=== PATIENT | female | born 1980 | race Hispanic/Latino ===

== ENCOUNTER 2018-04-15 11:54 | Emergency (ER) | payer OTHER, SELFPAY ==
--- NOTE | 2018-04-15 12:21 | ER ---
Nurse's Notes [facility] Name: Navneet Morales Age: 37 yrs Sex: Female : 1980 Arrival Date: 04/15/2018 Time: 11:58 Bed 18 Private MD: None, None Diagnosis: Sciatica, right side Presentation: 04/15 12:01 Presenting complaint: Patient states: "My boss is over reacting. I told him I had a lk1 catch in my back I thought from sleeping wrong, but he had back injuries and he wants to make sure I am ok.". Transition of care: patient was not received from another setting of care. Onset of symptoms was April 14, 2018. Risk Assessment: Do you want to hurt yourself or someone else? Patient reports no desire to harm self or others. Initial Sepsis Screen: Does the patient meet any 2 criteria? No. Patient's initial sepsis screen is negative. Does the patient have a suspected source of infection? No. Patient's initial sepsis screen is negative. Care prior to arrival: None. 12:01 Method Of Arrival: Ambulatory lk1 12:01 Acuity: ALFREDITO 5 lk1 Triage Assessment: 12:04 General: Appears in no apparent distress. Behavior is calm, cooperative, appropriate lk1 for age. Pain: Complains of pain in right gluteus kervin Pain radiates to right hamstring Pain currently is 1 out of 10 on a pain scale. Musculoskeletal: Swelling absent. 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 - Social history:: Smoking status: Patient uses tobacco products, smokes one-half pack cigarettes per day. Screenin:17 Abuse screen: Denies threats or abuse. Nutritional screening: No deficits noted. em Tuberculosis screening: No symptoms or risk factors identified. Fall Risk None identified. Assessment: 12:19 General: Appears in no apparent distress. comfortable, Behavior is calm, cooperative. em Pain: Complains of pain in right low back Pain currently is 1 out of 10 on a pain scale. Neuro: Level of Consciousness is awake, alert, obeys commands, Oriented to person, place, time, situation, Moves all extremities. Gait is steady, Speech is normal, Intact. Cardiovascular: Capillary refill < 3 seconds Patient's skin is warm and dry. Respiratory: Airway is patent Respiratory effort is even, unlabored, Respiratory pattern is regular, symmetrical. GI: Abdomen is round non-distended. : No signs and/or symptoms were reported regarding the genitourinary system. EENT: No signs and/or symptoms were reported regarding the EENT system. Derm: Skin is intact, Skin is pink, warm \\T\\ dry. Musculoskeletal: Range of motion: intact in all extremities. Vital Signs: 12:05 BP 145 / 99; Pulse 87; Resp 14; Temp 97.0(TE); Pulse Ox 99% on R/A; Weight 92.99 kg; lk1 Height 5 ft. 7 in. (170.18 cm) (R); Pain 1/10; 12:22 BP 151 / 92; Pulse 78; em 12:05 Body Mass Index 32.11 (92.99 kg, 170.18 cm) lk1 ED Course: 11:58 Patient arrived in ED. mr 11:58 None, None is Private Physician. mr 12:03 Triage completed. lk1 12:06 Arm band placed on right wrist. lk1 12:08 Dione Ferrell FNP-C is PSYCHIATRICP. kb 12:08 Stefano Butler MD is Attending Physician. kb 12:09 [place] LVN is Primary Nurse. em 12:17 No provider procedures requiring assistance completed. Patient did not have IV access em during this emergency room visit. 12:18 Patient has correct armband on for positive identification. em Administered Medications: No medications were administered Outcome: 12:21 Discharge ordered by . kb 12:26 Discharged to home ambulatory. em 12:26 Condition: good 12:26 Discharge instructions given to patient. 12:30 Patient left the ED. em Signatures: Dione Ferrell FNP-C FNP-Elizabeth Pagan mr [place] LVN WATERSHED COORDINATOR em Betty Pearson, DIANE RN lk1 Corrections: (The following items were deleted from the chart) 12:04 12:03 PSHx: None; lk1 lk1
--- NOTE | 2018-04-15 12:21 | EDPHYS ---
Physician Documentation [facility] Name: Navneet Morales Age: 37 yrs Sex: Female : 1980 Arrival Date: 04/15/2018 Time: 11:58 Bed 18 Private MD: None, None ED Physician Stefano Butler HPI: 04/15 12:17 This 37 yrs old Female presents to ER via Ambulatory with complaints of Back kb Pain. 12:17 The patient presents with pain that is acute, with no known mechanism of injury. The kb symptoms are located in the right low back. Onset: The symptoms/episode began/occurred yesterday. The pain radiates to the right leg. Associated signs and symptoms: The patient has no apparent associated signs or symptoms. The problem was sustained without known cause. Modifying factors: The patient symptoms are alleviated by nothing, the patient symptoms are aggravated by any movement. Severity of symptoms: At their worst the symptoms were very mild, in the emergency department the symptoms are unchanged. The patient has experienced similar episodes in the past, a few times. The patient has not recently seen a physician. 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 Woke up with pain to lower right back that radiates down right thigh yesterday morning. States today she just wanted to rest so she called into work and her boss to her to come get it checked out. . 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 - Social history:: Smoking status: Patient uses tobacco products, smokes one-half pack cigarettes per day. ROS: 12:19 Constitutional: Negative for fever, chills, and weight loss, Cardiovascular: Negative kb for chest pain, palpitations, and edema, Respiratory: Negative for shortness of breath, cough, wheezing, and pleuritic chest pain, Abdomen/GI: Negative for abdominal pain, nausea, vomiting, diarrhea, and constipation, : Negative for injury, bleeding, discharge, and swelling, MS/Extremity: Negative for injury and deformity, Skin: Negative for injury, rash, and discoloration, Neuro: Negative for headache, weakness, numbness, tingling, and seizure. 12:19 Back: Positive for pain at rest, pain with movement, radiated pain. Exam: 12:20 Constitutional: This is a well developed, well nourished patient who is awake, alert, kb and in no acute distress. Head/Face: Normocephalic, atraumatic. Chest/axilla: Normal chest wall appearance and motion. Nontender with no deformity. No lesions are appreciated. Cardiovascular: Regular rate and rhythm with a normal S1 and S2. No gallops, murmurs, or rubs. Normal PMI, no JVD. No pulse deficits. Respiratory: Lungs have equal breath sounds bilaterally, clear to auscultation and percussion. No rales, rhonchi or wheezes noted. No increased work of breathing, no retractions or nasal flaring. Abdomen/GI: Soft, non-tender, with normal bowel sounds. No distension or tympany. No guarding or rebound. No evidence of tenderness throughout. Skin: Warm, dry with normal turgor. Normal color with no rashes, no lesions, and no evidence of cellulitis. MS/ Extremity: Pulses equal, no cyanosis. Neurovascular intact. Full, normal range of motion. Neuro: Awake and alert, GCS 15, oriented to person, place, time, and situation. Cranial nerves II-XII grossly intact. Motor strength 5/5 in all extremities. Sensory grossly intact. Cerebellar exam normal. Normal gait. 12:20 Back: pain, that is mild, of the right low back. Vital Signs: 12:05 BP 145 / 99; Pulse 87; Resp 14; Temp 97.0(TE); Pulse Ox 99% on R/A; Weight 92.99 kg; lk1 Height 5 ft. 7 in. (170.18 cm) (R); Pain 1/10; 12:22 BP 151 / 92; Pulse 78; em 12:05 Body Mass Index 32.11 (92.99 kg, 170.18 cm) lk1 MDM: 12:08 Patient medically screened. kb 12:20 Data reviewed: vital signs, nurses notes. Data interpreted: Pulse oximetry: on room air kb is 99 %. Interpretation: normal. Counseling: I had a detailed discussion with the patient and/or guardian regarding: the historical points, exam findings, and any diagnostic results supporting the discharge/admit diagnosis, the need for outpatient follow up, a family practitioner, to return to the emergency department if symptoms worsen or persist or if there are any questions or concerns that arise at home. Administered Medications: No medications were administered Disposition: 14:34 Co-signature as Attending Physician, Stefano Butler MD. rn Disposition: 04/15/18 12:21 Discharged to Home. Impression: Sciatica, right side. - Condition is Stable. - Discharge Instructions: Sciatica, [id number], Back Exercises, [id number]. - Work release form, Medication Reconciliation Form, Thank You Letter, Antibiotic Education, Prescription Opioid Use form. - Follow up: Emergency Department; When: As needed; Reason: Worsening of condition. Follow up: Private Physician; When: 2 - 3 days; Reason: Recheck today's complaints, Continuance of care, Re-evaluation by your physician. Signatures: Dione Ferrell, TRANSFORMATION MANAGER-C TRANSFORMATION MANAGER-Ckb [place], FOOD AND BEVERAGE OPERATIONS MANAGER FOOD AND BEVERAGE OPERATIONS MANAGER Stefano Puga MD MD rn Kluge, Leah, RN RN lk1 Corrections: (The following items were deleted from the chart) 12:04 12:03 PSHx: None; lk1 lk1 12:30 12:21 04/15/2018 12:21 Discharged to Home. Impression: Sciatica, right side. Condition em is Stable. Forms are Medication Reconciliation Form, Thank You Letter, Antibiotic Education, Prescription Opioid Use. Follow up: Emergency Department; When: As needed; Reason: Worsening of condition. Follow up: Private Physician; When: 2 - 3 days; Reason: Recheck today's complaints, Continuance of care, Re-evaluation by your physician. kb
[2018-04-15 12:44] VITALS: TEMP 97; O2SAT 99
[2018-04-15 12:45] VITALS: BP 151/92
== END 2018-04-15 12:30 | disposition home or self-care (01) ==
LOC: ER 11:54
DX: M54.31 Sciatica, right side (principal); F17.210 Nicotine dependence, cigarettes, uncomplicated
CPT/HCPCS: 99281

== ENCOUNTER 2020-04-16 21:34 | Emergency (ER) | payer OTHER, SELFPAY ==
[2020-04-16 23:41] LABS: Basophils % 1.3 % (0-1.3); Hematocrit 29.5 % (36.0-45.0); Lymphocytes % 28.7 % (15.3-44.8); MPV 8.2 fL (7.6-11.3); RBC Red Blood Cell Count 4.25 M/uL (3.86-4.86)
[2020-04-16 23:50] LABS: ALT/SGPT 33 U/L (12-78); AST/SGOT 17 U/L (15-37); Albumin 3.7 g/dL (3.4-5.0); Alkaline Phosphatase 83 U/L (45-117); BUN Blood Urea Nitrogen 8 mg/dL (7-18); Bicarbonate 27 mmol/L (21-32); Bilirubin Direct < 0.1 mg/dL (0-0.2); Bilirubin Total 0.3 mg/dL (0.2-1.0); Glucose Level 105 mg/dL (74-106); Lipase 172 U/L (73-393); Potassium 3.6 mmol/L (3.5-5.1); Sodium Level 140 mmol/L (136-145)
[2020-04-16 23:59] LABS: Urine Blood NEGATIVE (NEG); Urine Glucose NEGATIVE (NEG); Urine Protein NEGATIVE (NEG); Urine Specific Gravity >1.030 (1.005-1.030)
[2020-04-17] MEDS ORDERED: NA CHLORIDE 0.9% 1,000 ML ONE (00:10)
[2020-04-17 00:33] LABS: Platelet Estimate ADEQ; Urine White Blood Cell Casts OK
[2020-04-17 00:34] LABS: Blood Morphology Comment NOTED (NOT SEEN); Elliptocytes 1+; Hypochromasia 1+
[2020-04-17 00:44] LABS: Magnesium 2.3 mg/dL (1.8-2.4); Troponin (Emerg Dept Use Only) < 0.02 ng/mL (0.0-0.045)
--- NOTE | 2020-04-17 00:58 | ER ---
Nurse's Notes [facility] Name: Navneet Morales Age: 39 yrs Sex: Female : 1980 Arrival Date: 04/16/2020 Time: 21:34 Bed 8 Private MD: Diagnosis: Abdominal tenderness;Functional dyspepsia;Iron deficiency anemia, unspecified-microcytic , hypochromic Presentation: 04/16 21:56 Chief complaint: Patient states: Abdominal pain described as tightness x 4-5 days. ca1 Denies N/V/D. Reports fatigued and feeling weak. Coronavirus screen: Proceed with normal triage. Patient denies a cough. Patient denies shortness of breath or difficulty breathing. Patient denies measured and/or subjective temperature greater than 100.4F prior to today's visit. Patient denies travel on a cruise ship or to a country the [facility] currently lists as an affected area. Patient denies contact with known and/or suspected case of COVID-19. Ebola Screen: Patient negative for fever greater than or equal to 101.5 degrees Fahrenheit, and additional compatible Ebola Virus Disease symptoms Patient denies exposure to infectious person. Patient denies travel to an Ebola-affected area in the 21 days before illness onset. No symptoms or risks identified at this time. Initial Sepsis Screen: Does the patient meet any 2 criteria? No. Patient's initial sepsis screen is negative. Does the patient have a suspected source of infection? No. Patient's initial sepsis screen is negative. Risk Assessment: Do you want to hurt yourself or someone else? Patient reports no desire to harm self or others. Onset of symptoms was April 16, 2020. 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 - Social history:: Smoking status: Patient reports the use of cigarette tobacco products, smokes one-half pack cigarettes per day. - Family history:: not pertinent. Screenin:00 Abuse screen: Denies threats or abuse. Denies injuries from another. Nutritional rr5 screening: No deficits noted. Tuberculosis screening: No symptoms or risk factors identified. Fall Risk IV access (20 points). Mental Status- Total Owen Fall Scale indicates No Risk (0-24 pts). Assessment: 23:00 General: Appears in no apparent distress. comfortable, Behavior is calm, cooperative, rr5 appropriate for age. 23:00 Pain: Complains of pain in abdomen Pain does not radiate. Pain Quality of pain is rr5 described as tight Pain began gradually, 4-5days Is intermittent. Neuro: Level of Consciousness is awake, alert, obeys commands, Oriented to person, place, time, situation. Cardiovascular: Capillary refill < 3 seconds Patient's skin is warm and dry. Respiratory: Airway is patent Respiratory effort is even, unlabored, Respiratory pattern is regular, symmetrical. GI: Abdomen is round non-distended, Bowel sounds present X 4 quads. Abd is soft and non tender X 4 quads. Reports lower abdominal pain, upper abdominal pain, Patient currently denies diarrhea, nausea, vomiting. : No signs and/or symptoms were reported regarding the genitourinary system. EENT: No signs and/or symptoms were reported regarding the EENT system. Derm: Skin is intact, is healthy with good turgor, Skin temperature is warm. Musculoskeletal: Circulation, motion, and sensation intact. Capillary refill < 3 seconds. 23:00 General: Reports fatigue for and weak. rr5 04/17 00:16 Reassessment: Patient appears in no apparent distress at this time. Patient and/or rr5 family updated on plan of care and expected duration. Pain level reassessed. Patient is alert, oriented x 3, equal unlabored respirations, skin warm/dry/pink. 01:04 Reassessment: Patient appears in no apparent distress at this time. Patient is alert, rr5 oriented x 3, equal unlabored respirations, skin warm/dry/pink. discharge instruction given and explained without complaints made. Patient states symptoms have improved. Vital Signs: 04/16 21:56 BP 122 / 88; Pulse 94; Resp 16 S; Temp 98.5(TE); Pulse Ox 99% on R/A; Weight 90.72 kg ca1 (R); Height 5 ft. 6 in. (167.64 cm) (R); Pain 0/10; 04/17 00:00 BP 136 / 76 Supine; Pulse 83; Resp 19; Pulse Ox 99% on R/A; rr5 00:02 BP 144 / 84 Sitting; Pulse 90; Resp 16; Pulse Ox 98% ; rr5 00:04 BP 139 / 92 Standing; Pulse 89; Resp 16; Pulse Ox 99% ; rr5 01:00 BP 115 / 62; Pulse 85; Resp 17; Pulse Ox 99% ; rr5 04/16 21:56 Body Mass Index 32.28 (90.72 kg, 167.64 cm) ca1 ED Course: 04/16 21:34 Patient arrived in ED. cl3 21:59 Triage completed. ca1 21:59 Arm band placed on right wrist. ca1 22:30 Patient has correct armband on for positive identification. Placed in gown. Bed in low rr5 position. Call light in reach. security monitor on. Pulse ox on. NIBP on. 22:54 Feliz Serrano, RN is Primary Nurse. rv 23:15 Inserted saline lock: 20 gauge in right antecubital area, using aseptic technique. mt Blood collected. 23:17 Wilber Mclean MD is Attending Physician. javier 23:19 Robbi Quiñonez, DIANE is Primary Nurse. rr5 04/17 00:59 XRAY Chest (1 view) In Process Unspecified. EDMS 01:03 No provider procedures requiring assistance completed. IV discontinued, intact, rr5 bleeding controlled, No redness/swelling at site. Pressure dressing applied. Administered Medications: 00:14 Drug: NS 0.9% 1000 ml Route: IV; Rate: 1 bolus; Site: right antecubital; rr5 01:05 Follow up: Response: No adverse reaction; IV Status: Completed infusion; IV Intake: rr5 1000ml Intake: 01:05 IV: 1000ml; Total: 1000ml. rr5 Outcome: 00:57 Discharge ordered by . javier 01:03 Discharged to home ambulatory. rr5 01:03 Condition: stable 01:03 Discharge instructions given to patient, Instructed on discharge instructions, follow up and referral plans. medication usage, Demonstrated understanding of instructions, follow-up care, medications, Prescriptions given X 3. 01:05 Patient left the ED. rr5 Signatures: Dispatcher [employer] EDGA Wilber Mclean MD MD cha Thompson [facility] Feliz Serrano, RN RN rv Robbi Quiñonez, RN RN rr5 Marcela Ruiz, RN RN ca1 Jhony, Keith cl3
--- NOTE | 2020-04-17 00:58 | EDPHYS ---
Physician Documentation [facility] Name: Navneet Morales Age: 39 yrs Sex: Female : 1980 Arrival Date: 04/16/2020 Time: 21:34 Bed 8 Private MD: ED Physician Wilber Mclean HPI: 04/16 23:56 This 39 yrs old Female presents to ER via Ambulatory with complaints of javier Abdominal Pain. 23:56 The patient presents with abdominal pain. Onset: The symptoms/episode began/occurred 1 javier day(s) ago. no fever no chills, under stress. Onset: The symptoms/episode began/occurred 1 day(s) ago. The symptoms do not radiate. Associated signs and symptoms: Pertinent positives:. The symptoms are described as tight. Modifying factors: The symptoms are alleviated by nothing, stress. Severity of pain: At its worst the pain was mild in the emergency department the pain is unchanged. Severity of symptoms: At their worst the symptoms were mild in the emergency department the symptoms are unchanged. 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 - Social history:: Smoking status: Patient reports the use of cigarette tobacco products, smokes one-half pack cigarettes per day. - Family history:: not pertinent. ROS: 23:56 Constitutional: Negative for fever, chills, and weight loss, Eyes: Negative for injury, javier pain, redness, and discharge, ENT: Negative for injury, pain, and discharge, Neck: Negative for injury, pain, and swelling, Cardiovascular: Negative for chest pain, palpitations, and edema, Respiratory: Negative for shortness of breath, cough, wheezing, and pleuritic chest pain, Back: Negative for injury and pain, : Negative for injury, bleeding, discharge, and swelling, MS/Extremity: Negative for injury and deformity, Skin: Negative for injury, rash, and discoloration, Neuro: Negative for headache, weakness, numbness, tingling, and seizure, Psych: Negative for depression, anxiety, suicide ideation, homicidal ideation, and hallucinations, Allergy/Immunology: Negative for hives, rash, and allergies, Endocrine: Negative for neck swelling, polydipsia, polyuria, polyphagia, and marked weight changes. 23:56 Abdomen/GI: Positive for tightness. Exam: 23:56 Constitutional: This is a well developed, well nourished patient who is awake, alert, javier and in no acute distress. Head/Face: Normocephalic, atraumatic. Eyes: Pupils equal round and reactive to light, extra-ocular motions intact. Lids and lashes normal. Conjunctiva and sclera are non-icteric and not injected. Cornea within normal limits. Periorbital areas with no swelling, redness, or edema. ENT: Nares patent. No nasal discharge, no septal abnormalities noted. Tympanic membranes are normal and external auditory canals are clear. Oropharynx with no redness, swelling, or masses, exudates, or evidence of obstruction, uvula midline. Mucous membranes moist. Neck: Trachea midline, no thyromegaly or masses palpated, and no cervical lymphadenopathy. Supple, full range of motion without nuchal rigidity, or vertebral point tenderness. No Meningismus. Chest/axilla: Normal chest wall appearance and motion. Nontender with no deformity. No lesions are appreciated. Cardiovascular: Regular rate and rhythm with a normal S1 and S2. No gallops, murmurs, or rubs. Normal PMI, no JVD. No pulse deficits. Respiratory: Lungs have equal breath sounds bilaterally, clear to auscultation and percussion. No rales, rhonchi or wheezes noted. No increased work of breathing, no retractions or nasal flaring. Abdomen/GI: Soft, non-tender, with normal bowel sounds. No distension or tympany. No guarding or rebound. No evidence of tenderness throughout. Back: No spinal tenderness. No costovertebral tenderness. Full range of motion. Skin: Warm, dry with normal turgor. Normal color with no rashes, no lesions, and no evidence of cellulitis. MS/ Extremity: Pulses equal, no cyanosis. Neurovascular intact. Full, normal range of motion. Neuro: Awake and alert, GCS 15, oriented to person, place, time, and situation. Cranial nerves II-XII grossly intact. Motor strength 5/5 in all extremities. Sensory grossly intact. Cerebellar exam normal. Normal gait. Psych: Awake, alert, with orientation to person, place and time. Behavior, mood, and affect are within normal limits. 04/17 00:22 ECG was reviewed by the Attending Physician. [facility] Vital Signs: 04/16 21:56 BP 122 / 88; Pulse 94; Resp 16 S; Temp 98.5(TE); Pulse Ox 99% on R/A; Weight 90.72 kg ca1 (R); Height 5 ft. 6 in. (167.64 cm) (R); Pain 0/10; 04/17 00:00 BP 136 / 76 Supine; Pulse 83; Resp 19; Pulse Ox 99% on R/A; rr5 00:02 BP 144 / 84 Sitting; Pulse 90; Resp 16; Pulse Ox 98% ; rr5 00:04 BP 139 / 92 Standing; Pulse 89; Resp 16; Pulse Ox 99% ; rr5 01:00 BP 115 / 62; Pulse 85; Resp 17; Pulse Ox 99% ; rr5 04/16 21:56 Body Mass Index 32.28 (90.72 kg, 167.64 cm) ca1 MDM: 04/16 23:17 Patient medically screened. [facility] 04/17 00:01 Data reviewed: vital signs, nurses notes, lab test result(s), EKG, radiologic studies, [facility] plain films. Data interpreted: monitoring specialist: rate is 94 beats/min, Pulse oximetry: on room air is 99 %. Test interpretation: by ED physician or midlevel provider: ECG, plain radiologic studies. Counseling: I had a detailed discussion with the patient and/or guardian regarding: the historical points, exam findings, and any diagnostic results supporting the discharge/admit diagnosis, lab results, radiology results, the need for outpatient follow up, for definitive care. ED course: no specific complaint, under stress, abdomen feels tight. 00:56 Differential diagnosis: gastroesophageal reflux disease, non-specific abd pain, javier pancreatitis, Peptic Ulcer Disease, urinary tract infection. ED course: labs explained to patient , will follow up, return if worse. 04/16 23:01 Order name: Basic Metabolic Panel; Complete Time: 00:39 rv 04/16 23:01 Order name: CBC with Diff; Complete Time: 00:39 rv 04/16 23: Order name: Hepatic Function; Complete Time: 00:39 rv 04/16 23:01 Order name: Lipase; Complete Time: 00:39 04/16 23:49 Order name: Urine Dipstick--Ancillary (enter results); Complete Time: 00:39 ar5 04/16 23:49 Order name: Urine --Ancillary (enter results); Complete Time: 00:39 [facility] 04/16 23:01 Order name: IV Saline Lock; Complete Time: 23:17 04/16 23:01 Order name: Labs collected and sent; Complete Time: 23:17 04/16 23:52 Order name: Magnesium; Complete Time: 00:55 [facility] 04/16 23:52 Order name: Troponin (emerg Dept Use Only); Complete Time: 00:55 [facility] 04/16 23:52 Order name: XRAY Chest (1 view) [facility] 04/16 23:52 Order name: EKG; Complete Time: 23:54 [facility] 04/17 00:36 Order name: CBC Smear Scan; Complete Time: 00:39 EDMS 04/16 23:52 Order name: Cardiac monitoring; Complete Time: 00:14 [facility] 04/16 23:52 Order name: EKG - Nurse/Tech; Complete Time: 00:14 [facility] 04/16 23:52 Order name: O2 Per Protocol; Complete Time: 00:14 [facility] 04/16 23:52 Order name: O2 Sat Monitoring; Complete Time: 00:14 [facility] 04/16 23:55 Order name: Orthostatics; Complete Time: 00:14 [facility] EC:22 Rate is 74 beats/min. Rhythm is regular. QRS [place] is Normal. [place] interval is normal. QRS javier interval is normal. QT interval is normal. No Q waves. T waves are Normal. No ST changes noted. Clinical impression: Normal ECG and No evidence of ischemia. Interpreted by me. Reviewed by me. Administered Medications: 00:14 Drug: NS 0.9% 1000 ml Route: IV; Rate: 1 bolus; Site: right antecubital; rr5 01:05 Follow up: Response: No adverse reaction; IV Status: Completed infusion; IV Intake: rr5 1000ml Disposition: 04/17/20 00:57 Discharged to Home. Impression: Abdominal tenderness, Functional dyspepsia, Iron deficiency anemia, unspecified - microcytic , hypochromic. - Condition is Stable. - Discharge Instructions: Abdominal Pain, Adult, Iron Deficiency Anemia, Adult, Anemia, Nonspecific, Iron-Rich Diet, Abdominal Pain, Adult, [id number], Iron Deficiency Anemia, Adult, [id number]. - Prescriptions for Bentyl 20 mg Oral Tablet - take 1 tablet by ORAL route every 6 hours As needed; 20 tablet. Pepcid 20 mg Oral Tablet - take 1 tablet by ORAL route every 12 hours for 10 days; 20 tablet. Vitamin 27- 0.8 mg Oral Tablet - take 1 tablet by ORAL route once daily; 30 tablet. - Medication Reconciliation Form, Thank You Letter, Antibiotic Education, Prescription Opioid Use form. - Follow up: Private Physician; When: 2 - 3 days; Reason: Recheck today's complaints, Continuance of care, Re-evaluation by your physician. - Problem is new. - Symptoms have improved. Signatures: Dispatcher [employer] EDMS Wilber Mclean MD MD cha Vicente, Ronaldo RN RN rv Robbi Quiñonez RN RN rr5 Marcela Ruiz RN RN ca1 Corrections: (The following items were deleted from the chart) 01:05 00:57 04/17/2020 00:57 Discharged to Home. Impression: Abdominal tenderness; Functional rr5 dyspepsia; Iron deficiency anemia, unspecified - microcytic , hypochromic. Condition is Stable. Discharge Instructions: Abdominal Pain, Adult, Abdominal Pain, Adult, [id number], Iron Deficiency Anemia, Adult, Anemia, Nonspecific, Iron-Rich Diet, Iron Deficiency Anemia, Adult, [id number]. Prescriptions for Bentyl 20 mg Oral Tablet - take 1 tablet by ORAL route every 6 hours As needed; 20 tablet, Pepcid 20 mg Oral Tablet - take 1 tablet by ORAL route every 12 hours for 10 days; 20 tablet. and Forms are Medication Reconciliation Form, Thank You Letter, Antibiotic Education, Prescription Opioid Use. Follow up: Private Physician; When: 2 - 3 days; Reason: Recheck today's complaints, Continuance of care, Re-evaluation by your physician. Problem is new. Symptoms have improved. javier
[2020-04-17 01:20] VITALS: TEMP 98.5
[2020-04-17 01:25] VITALS: O2SAT 99
[2020-04-17 01:26] VITALS: BP 115/62
--- NOTE | 2020-04-17 08:04 | EKG ---
Test Date: 2020-04-17 Test Time: 00:13:27 Atm Mechanic: RR MEASUREMENT RESULTS: Intervals: Rate: 74 OK: 144 QRSD: 86 QT: 422 QTc: 468 [place]: P: 62 OK: 144 QRS: 56 T: 52 INTERPRETIVE STATEMENTS: Normal sinus rhythm Normal ECG Compared to ECG 12/15/2015 15:30:29 No significant changes Electronically Signed On 04-17-20 08:03:53 CDT by Jose Grigsby
--- NOTE | 2020-04-17 12:42 | RAD REPORT ---
EXAM DESCRIPTION: RAD - Chest Single View - 04/17/2020 12:23 am CLINICAL HISTORY: ABDOMINAL DISTENTION Chest pain. COMPARISON: CHEST PA AND LAT 2 VIEW dated 12/15/2015 FINDINGS: Portable technique limits examination quality. The lungs are grossly clear. The heart is normal in size. No displaced fractures. IMPRESSION: No acute intrathoracic process suspected.
== END 2020-04-17 01:05 | disposition home or self-care (01) ==
LOC: ER 21:34
DX: K30 Functional dyspepsia (principal); D50.9 Iron deficiency anemia, unspecified; F17.210 Nicotine dependence, cigarettes, uncomplicated
CPT/HCPCS: 36415; 71045; 80048; 80076; 81003; 81025; 83690; 83735; 84484; 85025; 93005; 96360; 99284; J7030

== ENCOUNTER 2022-09-15 16:52 | Emergency (ER) | payer SELFPAY ==
--- OUTSIDE RECORDS SUMMARY | 2022-09-15 16:54 | XMS REPORT | Continuity of Care Document ---
:1980 Author Organization [facility] t Address [address] [place] [address] [place] [id number] Care Team Providers Name Role Phone MIAH Attending Clinician Unavailable MIAH Admitting Clinician Unavailable Problems This patient has no known problems. Allergies, Adverse Reactions, Alerts This patient has no known allergies or adverse reactions. Medications This patient has no known medications. Procedures This patient has no known procedures. Encounters Start End Encounter Admission Attending Care Care Encounter Source Date/Time Date/Time Type Type Clinicians Facility Department ID 2022-06-06 2022-06-06 Outpatient [facility] [id number] 02:36:00 02:36:00 [id number] [facility] Program Results This patient has no known results.
[2022-09-15 18:39] LABS: Urine Blood Negative (Negative); Urine Glucose Negative (Negative); Urine Protein Negative (Negative); Urine Specific Gravity 1.025 (1.005-1.030); Urine pH 6.5 (5.0-7.0)
[2022-09-15 19:04] LABS: Urine Specific Gravity/Preg 1.025 (1.005-1.030)
[2022-09-15 19:05] LABS: Absolute Lymphocytes (CBC) 2.8 K/uL (0.7-4.9); Hematocrit 37.7 % (36.0-45.0); Lymphocytes % 36.3 % (15.3-44.8); MPV 8.9 fL (7.6-11.3); RBC Red Blood Cell Count 4.55 M/uL (3.86-4.86)
[2022-09-15 19:24] LABS: Albumin 3.7 g/dL (3.4-5.0); Bilirubin Total 0.4 mg/dL (0.2-1.0); Magnesium 2.2 mg/dL (1.8-2.4); Potassium 3.6 mmol/L (3.5-5.1); Protein, Total 7.8 g/dL (6.4-8.2); Troponin High Sensitivity 5.7 pg/mL (<58.9)
--- NOTE | 2022-09-15 19:47 | RAD REPORT ---
EXAM DESCRIPTION: RAD - Chest Single View - 09/15/2022 6:54 pm CLINICAL HISTORY: DYSPNEA COMPARISON: Portable 04/17/2020 TECHNIQUE: AP portable chest image was obtained 09/15/2022 6:54 pm . FINDINGS: Lungs are clear. Heart and vasculature are normal. No measurable pleural effusion and no p neumothorax. No acute bony abnormality seen. No acute aortic findings suspected. IMPRESSION: No acute cardiopulmonary process.
--- NOTE | 2022-09-15 19:49 | RAD REPORT ---
EXAM DESCRIPTION: US - Extremity Venous Uni Ltd - 09/15/2022 7:25 pm CLINICAL HISTORY: PAIN COMPARISON: None. TECHNIQUE: Real-time sonographic evaluation of the left lower extremity deep venous system was perfo rmed. FINDINGS: Normal compressibility, flow augmentation, phasic flow and spontaneous flow are identified in the left lower extremity common femoral, superficial femoral, popliteal and posterior tibial vein s. No intraluminal filling defects seen. IMPRESSION: No DVT in the left lower extremity.
--- NOTE | 2022-09-15 19:59 | EDPHYS ---
Physician Documentation [facility] Name: Navneet Morales Age: 42 yrs Sex: Female : 1980 Arrival Date: 09/15/2022 Time: 16:55 Bed 10 Private MD: ED Physician Wilber Mclean HPI: 09/15 23:41 This 42 yrs old Female presents to ER via Ambulatory with complaints of kb Doesn't Feel Right, Leg Pain. 23:41 The patient or guardian reports difficulty breathing. Onset: The symptoms/episode kb began/occurred 4 day(s) ago. Severity of symptoms: At their worst the symptoms were mild, in the emergency department the symptoms are unchanged. Modifying factors: The symptoms are alleviated by nothing, the symptoms are aggravated by nothing. Associated signs and symptoms: The patient has no apparent associated signs or symptoms. The patient has not experienced similar symptoms in the past. The patient has not recently seen a physician. Pt reports shortness of breath at times, left calf pain, fatigue and malaise that started 4 days ago. 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 Last tetanus immunization: up to date. - Social history:: Smoking status: Patient reports the use of cigarette tobacco products, smokes one pack cigarettes per day. ROS: 23:40 Cardiovascular: Negative for chest pain, palpitations, and edema. kb 23:40 Constitutional: Positive for fatigue, malaise. 23:40 Respiratory: Positive for shortness of breath. 23:40 MS/extremity: Positive for pain, of the lateral aspect of left calf. 23:40 All other systems are negative. Exam: 19:04 Constitutional: This is a well developed, well nourished patient who is awake, alert, kb and in no acute distress. Head/Face: Normocephalic, atraumatic. ENT: Moist Mucous membranes Cardiovascular: Regular rate and rhythm with a normal S1 and S2. No gallops, murmurs, or rubs. No pulse deficits. Respiratory: Respirations even and unlabored. No increased work of breathing. Talking in full sentences Abdomen/GI: Soft, non-tender. No distention Skin: Warm, dry with normal turgor. Normal color. MS/ Extremity: Pulses equal, no cyanosis. Neurovascular intact. Full, normal range of motion. Neuro: Awake and alert, GCS 15, oriented to person, place, time, and situation. Moves all extremities. Normal gait. Psych: Awake, alert, with orientation to person, place and time. Behavior, mood, and affect are within normal limits. 19:04 ECG was reviewed by the Attending Physician. Vital Signs: 17:01 BP 170 / 108; Pulse 79; Resp 20; Temp 97.5; Pulse Ox 100% ; Weight 90.72 kg; Height 5 kb3 ft. 6 in. (167.64 cm); Pain 3/10; 20:14 BP 156 / 86; Pulse 77; Resp 16; Pulse Ox 99% on R/A; hb 17:01 Body Mass Index 32.28 (90.72 kg, 167.64 cm) kb3 MDM: 18:09 Patient medically screened. kb 19:04 Data reviewed: vital signs, nurses notes. Data interpreted: Pulse oximetry: on room air kb is 100 %. Interpretation: normal. 19:57 Counseling: I had a detailed discussion with the patient and/or guardian regarding: the kb historical points, exam findings, and any diagnostic results supporting the discharge/admit diagnosis, lab results, radiology results, the need for outpatient follow up, a family practitioner, to return to the emergency department if symptoms worsen or persist or if there are any questions or concerns that arise at home. 09/15 18:19 Order name: CBC with Diff; Complete Time: 19:11 kb 09/15 18:19 Order name: D-Dimer; Complete Time: 19:24 kb 09/15 18:19 Order name: Magnesium; Complete Time: 19:24 kb 09/15 18:19 Order name: NT PRO-BNP; Complete Time: 19:24 kb 09/15 18:19 Order name: Troponin HS; Complete Time: 19:24 kb 09/15 18:19 Order name: CMP; Complete Time: 19:24 kb 09/15 18:19 Order name: US Extremity Venous Unilateral Ltd; Complete Time: 19:50 kb 09/15 18:19 Order name: XRAY Chest (1 view); Complete Time: 19:49 kb 09/15 18:19 Order name: EKG; Complete Time: 18:20 kb 09/15 18:19 Order name: Flu; Complete Time: 19:01 kb 09/15 18:19 Order name: [place] Screen Profile; Complete Time: 19:34 kb 09/15 18:19 Order name: COVID-19 SARS RT PCR (Document "Date of Onset" if Symptomatic); Complete kb Time: 19:10 09/15 18:39 Order name: Urine --Ancillary (enter results); Complete Time: 19:06 eb 09/15 18:39 Order name: Urine Dipstick-Ancillary; Complete Time: 18:41 EDMS 09/15 18:19 Order name: Cardiac monitoring; Complete Time: 18:53 kb 09/15 18:19 Order name: EKG - Nurse/Tech; Complete Time: 18:51 kb 09/15 18:19 Order name: IV Saline Lock; Complete Time: 18:51 kb 09/15 18:19 Order name: Labs collected and sent; Complete Time: 18:51 kb 09/15 18:19 Order name: O2 Per Protocol; Complete Time: 18:51 kb 09/15 18:19 Order name: O2 Sat Monitoring; Complete Time: 18:51 kb EC:04 Rate is 55 beats/min. Rhythm is regular. QRS [place] is Normal. [place] interval is normal at kb 152 msec. QRS interval is normal at 82 msec. QT interval is normal at 415 msec. Administered Medications: No medications were administered Disposition Summary: 09/15/22 19:58 Discharge Ordered Location: Home kb Condition: Stable kb Diagnosis - Other malaise and fatigue kb Followup: kb - With: Emergency Department - When: As needed - Reason: Worsening of condition Followup: kb - With: Private Physician - When: 2 - 3 days - Reason: Recheck today's complaints, Continuance of care, Re-evaluation by your physician Discharge Instructions: - Discharge Summary Sheet kb - Fatigue kb Forms: - Medication Reconciliation Form kb - Thank You Letter kb - Antibiotic Education kb - Prescription Opioid Use kb Addendum: 09/19/2022 04:12 Co-signature as Attending Physician, Wilber Mclean MD I agree with the assessment and c lorenz plan of care. Signatures: Dispatcher [employer] EDMS Ghassan, Dione, POSITION CLERK-C POSITION CLERK-Ckb Wilber Mclean MD MD cha Bradberry, Kelly, RN RN kb3 Corrections: (The following items were deleted from the chart) 09/15 17:17 17:04 Allergies: Keflex; kb3 kb3 17:17 17:04 PMHx: carotid stenosis; kb3 kb3 17:17 17:04 PMHx: Myocardial infarction; kb3 kb3 17:17 17:04 PMHx: Hypertensive disorder; kb3 kb3 17:17 17:04 PMHx: Hypothyroidism; kb3 kb3 17:17 17:04 PSHx: Carotid endarterectomy; kb3 kb3 17:17 17:04 PSHx: Cardiac stents; kb3 kb3 17: 17:04 PSHx: Bilateral hip replacement; kb3 kb3 17:17 17:04 PSHx: Knee replacement; kb3 kb3 17:17 17:04 PSHx: Cholecystectomy; kb3 kb3 17:17 17:04 Immunization history: Adult Immunizations up to date, Client reports receiving kb3 the 2nd dose of the Covid vaccine, Last tetanus immunization: up to date kb3
--- NOTE | 2022-09-15 19:59 | ER ---
Nurse's Notes [facility] Name: Navneet Morales Age: 42 yrs Sex: Female : 1980 Arrival Date: 09/15/2022 Time: 16:55 Bed 10 Private MD: Diagnosis: Other malaise and fatigue Presentation: 09/15 17:00 Chief complaint: Patient states: Pt reports fatigue x5 days, "not feeling right" and kb3 left lower leg pain without trauma. 17:01 Coronavirus screen: Vaccine status: Patient reports being unvaccinated. Client denies kb3 travel out of the [place] in the last 14 days. Ebola Screen: Patient negative for fever greater than or equal to 101.5 degrees Fahrenheit, and additional compatible Ebola Virus Disease symptoms Patient denies exposure to infectious person. Patient denies travel to an Ebola-affected area in the 21 days before illness onset. No symptoms or risks identified at this time. Initial Sepsis Screen: Does the patient meet any 2 criteria? No. Patient's initial sepsis screen is negative. Does the patient have a suspected source of infection? No. Patient's initial sepsis screen is negative. Risk Assessment: Do you want to hurt yourself or someone else? Patient reports no desire to harm self or others. Onset of symptoms was September 09, 2022. 17:01 Method Of Arrival: Ambulatory kb3 17:01 Acuity: ALFREDITO 3 kb3 Triage Assessment: 17:04 General: Appears in no apparent distress. Behavior is calm, cooperative. Pain: Denies kb3 pain. Complains of pain in lateral aspect of left calf and left calf Pain does not radiate. Pain currently is 3 out of 10 on a pain scale. Quality of pain is described as aching. 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 Last tetanus immunization: up to date. - Social history:: Smoking status: Patient reports the use of cigarette tobacco products, smokes one pack cigarettes per day. Screenin:51 Abuse screen: Denies threats or abuse. Denies injuries from another. Nutritional hb screening: No deficits noted. Tuberculosis screening: No symptoms or risk factors identified. Fall Risk None identified. Assessment: 18:51 General: Appears in no apparent distress. Behavior is calm, cooperative. Pain: Pain hb currently is 3 out of 10 on a pain scale. Neuro: Level of Consciousness is awake, alert, obeys commands, Oriented to person, place, time, situation. Cardiovascular: Patient's skin is warm and dry. Respiratory: Respiratory effort is even, unlabored, Respiratory pattern is regular, symmetrical. GI: No signs and/or symptoms were reported involving the gastrointestinal system. : No signs and/or symptoms were reported regarding the genitourinary system. EENT: No signs and/or symptoms were reported regarding the EENT system. Derm: Skin is pink, warm \\T\\ dry. Musculoskeletal: No signs and/or symptoms reported regarding the musculoskeletal system. 20:14 Reassessment: Patient appears in no apparent distress at this time. Patient and/or hb family updated on plan of care and expected duration. Pain level reassessed. Patient is alert, oriented x 3, equal unlabored respirations, skin warm/dry/pink. Vital Signs: 17:01 BP 170 / 108; Pulse 79; Resp 20; Temp 97.5; Pulse Ox 100% ; Weight 90.72 kg; Height 5 kb3 ft. 6 in. (167.64 cm); Pain 3/10; 20:14 BP 156 / 86; Pulse 77; Resp 16; Pulse Ox 99% on R/A; hb 17:01 Body Mass Index 32.28 (90.72 kg, 167.64 cm) kb3 ED Course: 16:55 Patient arrived in ED. am2 17:04 Triage completed. kb3 17:06 Arm band placed on left wrist. kb3 18:08 Dione Ferrell FNP-C is PHCP. kb 18:08 Wilber Mclean MD is Attending Physician. kb 18:51 Patient has correct armband on for positive identification. hb 18:53 Brittani Sierra, RN is Primary Nurse. hb 18:53 Inserted saline lock: 20 gauge in left antecubital area, using aseptic technique. Blood zm collected. 18:54 Urine --Ancillary (enter results) Sent. zm 18:54 COVID-19 SARS RT PCR (Document "Date of Onset" if Symptomatic) Sent. zm 18:54 [place] Screen Profile Sent. zm 18:54 Flu Sent. zm 18:54 CMP Sent. zm 18:54 CBC with Diff Sent. zm 18:54 D-Dimer Sent. zm 18:54 Magnesium Sent. zm 18:54 NT PRO-BNP Sent. zm 18:54 Troponin HS Sent. zm 18:55 XRAY Chest (1 view) In Process Unspecified. EDMS 19:27 US Extremity Venous Unilateral Ltd In Process Unspecified. EDMS 20:14 No provider procedures requiring assistance completed. IV discontinued, intact, hb bleeding controlled, No redness/swelling at site. Administered Medications: No medications were administered Medication: 18:51 VIS not applicable for this client. hb Outcome: 19:58 Discharge ordered by MD. kb 20:14 Discharged to home ambulatory. hb 20:14 Condition: stable 20:14 Discharge instructions given to patient, Instructed on discharge instructions, follow up and referral plans. medication usage, Demonstrated understanding of instructions, follow-up care, medications. 20:15 Patient left the ED. hb Signatures: Dispatcher [employer] EDMS Dione Ferrell, MOLECULAR GENETIC PATHOLOGIST-C MOLECULAR GENETIC PATHOLOGIST-Brittani Hu RN RN Carlota Hernández Zaina zm Bradberry, Kelly, RN RN kb3 Corrections: (The following items were deleted from the chart) 17:16 17:01 Chief complaint: Patient states: Pt reports intermittent tingling in left arm and kb3 hand x1 week and intermittent headache x1 week. Her clinical document improvement educator told her that she either has a pinched nerve in her neck or a stroke and she should come to the ED for further evaluation kb3 17:16 17:01 Coronavirus screen: Vaccine status: Patient reports receiving the 2nd dose of the kb3 covid vaccine. Client denies travel out of the [place] in the last 14 days. kb3 17:17 17:04 Allergies: Keflex; kb3 kb3 17:17 17:04 PMHx: carotid stenosis; kb3 kb3 17:17 17:04 PMHx: Myocardial infarction; kb3 kb3 17:17 17:04 PMHx: Hypertensive disorder; kb3 kb3 17:17 17:04 PMHx: Hypothyroidism; kb3 kb3 17:17 17:04 PSHx: Carotid endarterectomy; kb3 kb3 17:17 17:04 PSHx: Cardiac stents; kb3 kb3 17:17 17:04 PSHx: Bilateral hip replacement; kb3 kb3 17:17 17:04 PSHx: Knee replacement; kb3 kb3 17:17 17:04 PSHx: Cholecystectomy; kb3 kb3 17:17 17:04 Immunization history: Adult Immunizations up to date, Client reports receiving kb3 the 2nd dose of the Covid vaccine, Last tetanus immunization: up to date kb3 17:20 17:01 BP 157 / 73; Pulse 85bpm; Resp 20bpm; Pulse Ox 96%; Temp 98F; 62.6 kg; Height 5 kb3 ft. 6 in.; BMI: 22.2; Pain 0/10; kb3 17:20 17:15 Chief complaint: Patient states: Pt reports fatigue x5 days, "not feeling right" kb3 and left lower leg pain without trauma. kb3 17:21 17:04 Pain: Denies pain. kb3 kb3 17:21 17:06 LMP N/A - Post-menopause kb3 kb3
[2022-09-15 21:50] VITALS: TEMP 97.5
[2022-09-15 21:51] VITALS: BP 156/86; O2SAT 99
--- NOTE | 2022-09-17 16:35 | EKG ---
Test Date: 2022-09-15 Test Time: 18:47:48 Technology Integration Specialist: HB MEASUREMENT RESULTS: Intervals: Rate: 55 AR: 152 QRSD: 82 QT: 434 QTc: 415 [place]: P: 52 AR: 152 QRS: 39 T: 56 INTERPRETIVE STATEMENTS: Sinus bradycardia Otherwise normal ECG Compared to ECG 04/17/2020 00:13:27 Sinus rhythm no longer present Electronically Signed On 09-17-22 16:34:44 CDT by Dontae Hope
== END 2022-09-15 20:15 | disposition home or self-care (01) ==
LOC: ER 16:52
DX: R53.81 Other malaise (principal); R53.83 Other fatigue; F17.210 Nicotine dependence, cigarettes, uncomplicated; Z20.822 Contact with and (suspected) exposure to COVID-19
CPT/HCPCS: 36415; 71045; 80053; 81003; 81025; 83735; 83880; 84484; 85025; 85379; 86308; 87804; 93005; 93971; 99283; U0003

== ENCOUNTER 2023-09-11 15:32 | Emergency (ER) | payer SELFPAY ==
--- OUTSIDE RECORDS SUMMARY | 2023-09-11 15:45 | XMS REPORT | Continuity of Care Document ---
:1980 Author Organization [facility] t Address [address] [place] [address] Care Team Providers Name Role Phone MIAH [...] DALLIN [place]O [address] 02:36:00 02:36:00 0712 [facility] Program Results This patient has no known results.
[2023-09-11] MEDS ORDERED: ASPIRIN 81 MG CHEWABLE TABLET ONE (16:12)
[2023-09-11 16:21] LABS: Absolute Lymphocytes (CBC) 2.2 K/uL (0.7-4.9); Hematocrit 37.3 % (36.0-45.0); Lymphocytes % 33.2 % (15.3-44.8); MCV 87.9 fL (80-100); MPV 8.4 fL (7.6-11.3); Platelets 286 thou/uL (152-406); RBC Red Blood Cell Count 4.25 M/uL (3.86-4.86)
[2023-09-11 16:45] LABS: Albumin 3.5 g/dL (3.4-5.0); Bilirubin Direct 0.2 mg/dL (0-0.2); Bilirubin Indirect, Calculated 0.4 mg/dL (0.2-0.8); Bilirubin Total 0.6 mg/dL (0.2-1.0); Magnesium 2.2 mg/dL (1.6-2.4); Potassium 3.8 mEq/L (3.5-5.1); Protein, Total 7.4 g/dL (6.4-8.2); Troponin High Sensitivity 6.8 pg/mL (<58.9)
--- NOTE | 2023-09-11 17:20 | RAD REPORT ---
[facility]AM DESCRIPTION[facility] 4:42 pm CLINICAL HISTORY: CHEST PAIN COMPARISON: Chest Single View dated 09/15/2022; Chest Single View dated 04/17/2020; CHEST PA AND LAT 2 VIEW dated 12/15/2015 TECHNIQUE: Portable AP view of the chest. FINDINGS: The lungs are clear. No pneumothorax or effusion. The cardiomediastinal contours are unre markable. IMPRESSION: No acute cardiopulmonary process.
--- NOTE | 2023-09-11 19:28 | EDPHYS ---
Physician Documentation [facility] Name: Navneet Morales Age: 43 yrs Sex: Female : 1980 Arrival Date: 09/11/2023 Time: 15:32 Bed 15 Private MD: ED Physician Mario Mosqueda HPI: 09/11 19:27 This 43 yrs old Female presents to ER via Ambulatory with complaints of Arm ms3 Pain, Chest Pain. 19:27 43-year-old female with no past medical history presents to the emergency department ms3 for substernal chest pain that began yesterday. Patient rates the pain a 5/10 and describes the discomfort as being sore. Patient states her pain radiates to the right shoulder. Patient states pain is 6/10. Patient denies nausea, vomiting, shortness of breath. Patient denies any alleviating or inciting factors. Historical: - Allergies: 15:49 No Known Allergies; cm10 - Home Meds: 15:49 None [Active]; cm10 - PMHx: 15:49 None; cm10 - PSHx: 15:49 None; cm10 - Immunization history:: Adult Immunizations not up to date. - Social history:: Smoking status: Patient/guardian denies using tobacco. ROS: 19:27 Constitutional: Negative for fever, and chills. Neck: Negative for injury, pain, and ms3 swelling, 19:27 Respiratory: Negative for shortness of breath, cough, wheezing, and pleuritic chest pain, Abdomen/GI: Negative for abdominal pain, nausea, vomiting, diarrhea, and constipation, MS/Extremity: Negative for injury and deformity, Skin: Negative for injury, rash, and discoloration, Neuro: Negative for headache, weakness, numbness, tingling. 19:27 Cardiovascular: Positive for chest pain, 19:27 All other systems are negative, Exam: 17:15 ECG was reviewed by the Attending Physician. ms3 19:27 Constitutional: This is a well developed, well nourished patient who is awake, alert, ms3 and in no acute distress. Head/Face: Normocephalic, atraumatic. Chest/axilla: Normal chest wall appearance and motion. Nontender with no deformity. Respiratory: Lungs have equal breath sounds bilaterally, clear to auscultation and percussion. No rales, rhonchi or wheezes noted. No increased work of breathing, no retractions or nasal flaring. Abdomen/GI: Soft, non-tender, with normal bowel sounds. No distension or tympany. No guarding or rebound. No evidence of tenderness throughout. 19:27 Skin: Warm, dry with normal turgor. Normal color with no rashes, no lesions, and no evidence of cellulitis. MS/ Extremity: Pulses equal, no cyanosis. Neurovascular intact. Full, normal range of motion. 19:27 Cardiovascular: Rate: normal, Rhythm: regular, Pulses: no pulse deficits are appreciated, Heart sounds: normal, normal S1and S2, Vital Signs: 15:47 BP 177 / 98; Pulse 82; Resp 18 S; Pulse Ox 100% ; Weight 88.45 kg (R); Height 5 ft. 6 cm10 in. (R); Pain 5/10; 16:00 BP 147 / 90; Pulse 80; Resp 16; Pulse Ox 99% ; ko1 19:35 BP 170 / 90; Pulse 83; Resp 19; Pulse Ox 100% ; Pain 0/10; jj7 15:47 Body Mass Index 31.47 (88.45 kg, 167.64 cm) cm10 15:47 Pain Scale: Adult cm10 19:35 Pain Scale: Adult jj7 MDM: 15:54 Patient medically screened. ms3 19:27 Differential diagnosis:. ms3 19:27 HEART Score: History: Slightly Suspicious (0), ECG: Normal (0), Age: < or = 45 years ms3 (0), Risk Factors: No Risk Factors Known (0), Troponin: < or = 1 x Normal Limit (0), Total Score = 0. The patient was given aspirin in the Emergency Department. Data reviewed: vital signs, nurses notes, lab test result(s), EKG, radiologic studies, and as a result, I will discharge patient. Consideration of Admission/Observation Escalation of care including admission/observation considered. Heart score 0, troponin negative. I considered the following discharge prescriptions or medication management in the emergency department Medications were administered in the Emergency Department. See MAR. Independent interpretation of the following test(s) in the Emergency Department EKG: See my EKG interpretation above. Counseling: I had a detailed discussion with the patient and/or guardian regarding the historical points, exam findings, and any diagnostic results supporting the discharge/admit diagnosis, lab results, radiology results, the need for outpatient follow up, to return to the emergency department if symptoms worsen or persist or if there are any questions or concerns that arise at home. Special discussion: Based on the patient's history, exam, and Dx evaluation, there is no indication for emergent intervention or inpatient Tx. It is understood by the patient/guardian that if the Sx's persist or worsen they need to return immediately for re-evaluation. ED course: Discussed labs, EKG, chest x-ray with patient. Patient states her symptoms have improved since being in the emergency department, patient is alert and orient x4, no apparent distress, nontoxic-appearing, speaking full sentences. Patient to follow-up with Dr. Hope in 1 to 2 days. Patient understands and agrees with plan. All questions were answered. Return precautions discussed include worsening symptoms, lightheadedness, shortness of breath, nausea, vomiting, diaphoresis, or any other concerns. 09/11 15:54 Order name: Basic Metabolic Panel; Complete Time: 16:47 ms3 09/11 15:54 Order name: CBC with Diff; Complete Time: 16:47 ms3 09/11 15:54 Order name: LFT's; Complete Time: 16:47 ms3 09/11 15:54 Order name: Magnesium; Complete Time: 16:47 ms3 09/11 15:54 Order name: Troponin HS; Complete Time: 16:47 ms3 09/11 15:54 Order name: XRAY Chest (1 view); Complete Time: 17:25 ms3 09/11 15:54 Order name: EKG; Complete Time: 15:55 ms3 09/11 15:54 Order name: Cardiac monitoring; Complete Time: 15:56 ms3 09/11 15:54 Order name: EKG - Nurse/Tech; Complete Time: 15:56 ms3 09/11 15:54 Order name: IV Saline Lock; Complete Time: 16:15 ms3 09/11 15:54 Order name: Labs collected and sent; Complete Time: 16:15 ms3 09/11 15:54 Order name: O2 Per Protocol; Complete Time: 15:56 ms3 09/11 15:54 Order name: O2 Sat Monitoring; Complete Time: 15:56 ms3 EC:15 Rate is 71 beats/min. Rhythm is regular. QRS [place] is Normal. NH interval is normal. QRS ms3 interval is normal. Clinical impression: NSR w/ Non-specific ST/T Changes. Interpreted by me. Reviewed by me. Administered Medications: 16:02 Drug: Aspirin PO Chewable Tablet 324 mg PO once; 81 mg tablets x 4 Route: PO; ko1 19:15 Follow up: Response: No adverse reaction jj7 Disposition: 22:24 Chart complete. ms3 Disposition Summary: 09/11/23 19:27 Discharge Ordered Notes: Location: Home ms3 Condition: Stable ms3 Diagnosis - Chest pain, unspecified ms3 - Elevated blood-pressure reading, without diagnosis of hypertension ms3 Followup: ms3 - With: Dontae Hope MD - When: 1 - 2 days - Reason: Recheck today's complaints Discharge Instructions: - Discharge Summary Sheet ms3 - Nonspecific Chest Pain, Adult ms3 Forms: - Medication Reconciliation Form ms3 - Thank You Letter ms3 - Antibiotic Education ms3 - Prescription Opioid Use ms3 - Patient Portal Instructions ms3 - Leadership Thank You Letter ms3 Signatures: Dispatcher [employer] EDMS Mario Mosqueda DO DO ms3 Shante Fitzgerald RN RN ko1 Svitlana Galvan, RN RN cm10 Jayshree Xiao RN jj7
--- NOTE | 2023-09-11 19:28 | ER ---
Nurse's Notes [facility] Name: Navneet Morales Age: 43 yrs Sex: Female : 1980 Arrival Date: 09/11/2023 Time: 15:32 Bed 15 Private MD: Diagnosis: Chest pain, unspecified;Elevated blood-pressure reading, without diagnosis of hypertension Presentation: 09/11 15:47 Chief complaint: Patient states: right sided chest pain that radiates to neck onset cm10 yesterday. Pt states that the pain feels like a tightness. Coronavirus screen: Vaccine status: Patient reports being unvaccinated. Client denies travel out of the [place] in the last 14 days. Ebola Screen: Patient denies travel to an Ebola-affected area in the 21 days before illness onset. No symptoms or risks identified at this time. Initial Sepsis Screen: Does the patient meet any 2 criteria? No. Patient's initial sepsis screen is negative. Does the patient have a suspected source of infection? No. Patient's initial sepsis screen is negative. Risk Assessment: Do you want to hurt yourself or someone else? Patient reports no desire to harm self or others. 15:47 Method Of Arrival: Ambulatory cm10 15:47 Acuity: ALFREDITO 2 cm10 15:49 Onset of symptoms was September 11, 2023. cm10 Historical: - Allergies: 15:49 No Known Allergies; cm10 - Home Meds: 15:49 None [Active]; cm10 - PMHx: 15:49 None; cm10 - PSHx: 15:49 None; cm10 - Immunization history:: Adult Immunizations not up to date. - Social history:: Smoking status: Patient/guardian denies using tobacco. Screenin:[facility] ED Fall Risk Assessment (Adult) History of falling in the last 3 months, ko1 including since admission No falls in past 3 months (0 pts) Confusion or Disorientation No (0 pts) Intoxicated or Sedated No (0 pts) Impaired Gait No (0 pts) Mobility Assist Device Used No (0 pt) Altered Elimination No (0 pt) Score/Fall Risk Level 0 - 2 = Low Risk Oriented to surroundings, Maintained a safe environment, Educated pt \T\ family on fall prevention, incl call for assistance when getting out of bed, Assessed \T\ reinforced patient's understanding of fall precautions, Provided non-skid footwear, Hourly rounding (assess needs \T\ fall precautionary measures) done, Used ambulatory aids as needed (educated on \T\ assisted with), Used gait belt as appropriate. Abuse screen: Denies threats or abuse. Denies injuries from another. Nutritional screening: No deficits noted. Tuberculosis screening: No symptoms or risk factors identified. Assessment: 16:00 General: Appears in no apparent distress. Behavior is calm, cooperative, appropriate ko1 for age. Pain: Pain radiates to left arm Pain began gradually. Neuro: No deficits noted. Cardiovascular: Reports chest pain. Respiratory: No deficits noted. GI: No deficits noted. : No deficits noted. EENT: No deficits noted. Derm: No deficits noted. Musculoskeletal: No deficits noted. 19:15 Reassessment: ASSUMED CARE OF PT. PT SITTING IN BED. NO DISTRESS NOTED. PT STATES SHE jj7 IS READY FOR DISCHARGE SHE IS FEELING BETTER.. NO NEEDS AT THIS TIME. CALL WOO IN REACH. Vital Signs: 15:47 BP 177 / 98; Pulse 82; Resp 18 S; Pulse Ox 100% ; Weight 88.45 kg (R); Height 5 ft. 6 cm10 in. (R); Pain 5/10; 16:00 BP 147 / 90; Pulse 80; Resp 16; Pulse Ox 99% ; ko1 19:35 BP 170 / 90; Pulse 83; Resp 19; Pulse Ox 100% ; Pain 0/10; jj7 15:47 Body Mass Index 31.47 (88.45 kg, 167.64 cm) cm10 15:47 Pain Scale: Adult cm10 19:35 Pain Scale: Adult jj7 ED Course: 15:35 Patient arrived in ED. im 15:41 Mario Mosqueda DO is Attending Physician. ms3 15:42 Shante Fitzgerald, DIANE is Primary Nurse. ko1 15:49 Triage completed. cm10 15:49 Arm band placed on Patient placed in an exam room, on a stretcher. cm10 16:00 Patient has correct armband on for positive identification. Placed in gown. Bed in low ko1 position. Call light in reach. Side rails up X 1. Provided Education on: na. Client placed on continuous cardiac and pulse oximetry monitoring. NIBP monitoring applied. cardiac monitor technician on. 16:00 Inserted saline lock: 22 gauge in left antecubital area, using aseptic technique. Blood ko1 collected. Patient maintains SpO2 saturation greater than 95% on room air. 16:44 XRAY Chest (1 view) In Process Unspecified. EDMS 19:27 Dontae oHpe MD is Referral Physician. ms3 19:42 No provider procedures requiring assistance completed. IV discontinued, intact, jj7 bleeding controlled, No redness/swelling at site. Pressure dressing applied. Administered Medications: 16:02 Drug: Aspirin PO Chewable Tablet 324 mg PO once; 81 mg tablets x 4 Route: PO; ko1 19:15 Follow up: Response: No adverse reaction jj7 Medication: 16:00 VIS not applicable for this client. ko1 Outcome: 19:27 Discharge ordered by . ms3 19:42 Discharged to home ambulatory, jj7 19:42 Condition: improved 19:42 Discharge instructions given to patient, Instructed on discharge instructions, 19:42 Demonstrated understanding of instructions, 19:58 Patient left the ED. jj7 Signatures: Dispatcher [employer] EDMS Mario Mosqueda DO DO ms3 Shante Fitzgerald, RN RN ko1 Jayshree Xiao RN RN jj7 Jud Gee Clarissa RN RN cm10
[2023-09-11 20:11] VITALS: BP 170/90; O2SAT 100
--- NOTE | 2023-09-12 12:26 | EKG ---
Test Date: 2023-09-11 Test Time: 15:53:27 Medical Physics Teacher: CAROLA MEASUREMENT RESULTS: Intervals: Rate: 71 NE: 150 QRSD: 84 QT: 420 QTc: 456 [place]: P: 58 NE: 150 QRS: 53 T: 80 INTERPRETIVE STATEMENTS: Normal sinus rhythm Nonspecific ST abnormality Abnormal ECG Compared to ECG 09/15/2022 18:47:48 ST (T wave) deviation now present Sinus bradycardia no longer present Electronically Signed On 09-12-23 12:23:53 CDT by Dontae Hope
== END 2023-09-11 19:58 | disposition home or self-care (01) ==
LOC: ER 15:32
DX: R07.89 Other chest pain (principal); R03.0 Elevated blood-pressure reading, without diagnosis of hypertension
CPT/HCPCS: 36415; 71045; 80048; 80076; 83735; 84484; 85025; 93005; 99285